=== PATIENT | female | born 1965 | race Caucasian/White ===

== ENCOUNTER 2017-01-12 12:48 | Emergency (ER) | payer MEDICAID ==
[~2017-01-12] VITALS: Ht 160 cm; Wt 109.8 kg
[~2017-01-12 12:48] MED LIST: ALBUTEROL2 PUFFS/17 IN; ALBUTEROL2.5 MG/NEB INH; ANTIVERT GENERI25 MG PO; AUGMENTIN 875-1 EACH PO; B12-METHYL1000 MCG PO; BIAXIN 500MG T500 MG PO; BIAXIN500 MG PO; BUMETANIDE2 MG PO; CALCIUM 600600 M2 PO; CELEXA40 MG PO; CIPROFLOXACIN500 MG PO; CLARITIN 10MG T10 MG PO; DOC-Q-LACE100 M1 PO; DULERA1 AR1 IH; DUONEB 3 MG/3 ML3 ML IH; FENOFIBRATE160 MG PO; FEXOFENADINE180 MG PO; FLONASE 50 MCG16 GM IN; GABAPENTIN 400400 MG PO; HYDROCHLOROTH12.5 M1 PO; HYDROCODONE/ACE1 TA5 PO; IMITREX 25MG TA25 MG PO; IMITREX50 MG PO; IMITREX6 MG/0.5 M SC; KLONOPIN 0.5MG0.5 MG PO; KLOR-CON M2020 MEQ PO; LASIX 40MG. TAB40 MG PO; LOPID600 MG PO; LORTAB 500 MG-11 TAB PO; MEDROL 4MG. DOSE4 MG PO; NAPROXEN SODIU500 MG PO; NEURONTIN600 MG PO; OXYGEN4 XX; Oxybutynin5 MG PO; PERCOCET 10 MG1 EACH PO; PREDNISONE 20MG20 MG PO; PREMARIN0.625 MG PO; PROTONIX 40MG T40 MG PO; SINGULAIR 10 MG10 MG PO; SINGULAIR10 MG PO; SPIRIVA HA1 PUFF/INH IH; SPIRIVA18 MCG IH; SYNTHROID PO; TOPAMAX25 M1 PO; TRAZODONE100 MG PO; TUSSIGON 1.5 MG1 TAB PO; VITAMIN B12500 MC1 MM; VITAMIN D35000 IU PO; VOLTAREN75 MG PO; ZOCOR10 MG PO; ZOFRAN ODT8 MG PO; ZOVIRAX800 MG PO
[2017-01-12] MEDS ORDERED: TRAMADOL 50MG T50 M1 PO (13:02)
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
[2017-01-12 14:52] LABS: HEMOGLOBIN 12.6 g/dL (12.2-16.2); LYMPH # 1.5 K/mm3 (0.7-4.5); LYMPH % 21.8 % (10-50.0)
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
[2017-01-12] MEDS ORDERED: ROBAXIN500 M1 PO (15:09)
[2017-01-12 15:12] VITALS: BP 129/85
== END 2017-01-12 15:19 | disposition home or self-care (01) ==
LOC: ER 12:48
PROVIDERS: Emergency Medicine
DX: I25.10 Atherosclerotic heart disease of native coronary artery without angina pectoris (principal); I10 Essential (primary) hypertension; M47.897 Other spondylosis, lumbosacral region; M15.9 Polyosteoarthritis, unspecified; N28.1 Cyst of kidney, acquired; R16.1 Splenomegaly, not elsewhere classified; V48.5XXA Car driver injured in noncollision transport accident in traffic accident, initial encounter; Y92.410 Unspecified street and highway as the place of occurrence of the external cause; Z96.653 Presence of artificial knee joint, bilateral; E07.9 Disorder of thyroid, unspecified; J44.9 Chronic obstructive pulmonary disease, unspecified; I50.9 Heart failure, unspecified; E78.5 Hyperlipidemia, unspecified; Z79.890 Hormone replacement therapy; Z99.81 Dependence on supplemental oxygen; Z79.899 Other long term (current) drug therapy; Z79.51 Long term (current) use of inhaled steroids
CPT/HCPCS: Q9967